=== PATIENT | male | born 1975 | race Caucasian/White ===

== ENCOUNTER → 2017-10-10 | Outpatient (CLI) | payer BC ==
[~2017-10-10] MED LIST: ALBU90I INH; ALBU90OI INH; AZIT250 PO; BUPRENORPHINE HC2 MG PO; BUTASPCAF PO; CALCA500CH PO; CYCL10 PO; ERYT.5TO OS; GUAI600T33 PO; HYDACE5 PO; IBUP200; IBUP800 PO; LORA2 PO; META800 PO; METH40; NAPR500 PO; OMEP20ER PO; OMEP40CA12 PO; PENVK500 PO; POLY17UD PO; RANI150 PO; RXHYDACE PO; RXTRAM50 PO; SERT50 PO; SUBOXONE PO; TRAM50 PO
[2017-10-12 04:09] LABS: MDA Not Detected (NOTDET); MDEA Not Detected (NOTDET); MDMA Not Detected (NOTDET)
[2017-10-12 11:59] LABS: Codeine Not Detected (NOTDET); Hydrocodone Not Detected (NOTDET); Hydromorphone Not Detected (NOTDET); Morphine Not Detected (NOTDET); Norhydrocodone Not Detected (NOTDET); Noroxycodone Not Detected (NOTDET)
== END ==
LOC: LAB SRC 14:35
PROVIDERS: Family Medicine
DX: Z51.81 Encounter for therapeutic drug level monitoring (principal); F11.20 Opioid dependence, uncomplicated; Z79.899 Other long term (current) drug therapy
CPT/HCPCS: G0480

== ENCOUNTER 2019-05-02 12:14 | Inpatient (IN) | payer BC ==
[~2019-05-02] VITALS: Ht 172.7 cm; Wt 129.9 kg
[2019-05-02 12:52] LABS: BASOPHILS ABSOLUTE AUTO 0.19 K/mm3 (0.00-0.23); BASOPHILS PERCENT AUTO 2 % (0-2); EOSINOPHILS ABSOLUTE AUTO 0.01 K/mm3 (0.00-0.68); EOSINOPHILS PERCENT AUTO 0 % (0-6); Hematocrit 39.3 % (37.0-53.0); Hemoglobin 13.4 g/dL (13.5-17.5); IMMATURE GRAN ABSOLUTE AUTO 0.13 K/mm3 (0.00-0.10); IMMATURE GRAN PERCENT AUTO 1 % (0-1); LYMPHOCYTES ABSOLUTE AUTO 1.19 K/mm3 (0.84-5.20); LYMPHOCYTES PERCENT AUTO 13 % (21-46); MONOCYTES ABSOLUTE AUTO 1.03 K/mm3 (0.16-1.47); MONOCYTES PERCENT AUTO 11 % (4-13); Mean Corpuscular HGB 33.8 pg (26.0-34.0); Mean Corpuscular HGB Conc 34.1 g/dL (31.5-36.5); Mean Corpuscular Volume 99 fL (80-100); Mean Platelet Volume 10.7 fL (9.1-12.4); NEUTROPHILS PERCENT AUTO 73 % (41-73); Platelet Count 155 K/mm3 (150-400); RDW Coefficient Variation 15.3 % (11.7-14.2); RDW Standard Deviation 55.7 fL (35.1-46.3); Red Blood Cell Count 3.96 M/mm3 (4.30-5.90); White Blood Cell Count 9.45 K/mm3 (4.00-11.30)
[2019-05-02 13:28] LABS: Alanine Aminotransfer (ALT/SGP 105 U/L (12-78); Albumin, Blood 2.7 g/dL (3.4-5.0); Albumin/Globulin Ratio 0.5 (0.8-1.8); Alk Phos 239 U/L (50-136); Anion Gap 17 mmol/L (6-16); Aspartate Aminotrans (AST/SGOT 250 U/L (12-37); Bilirubin, Total 2.4 mg/dL (0.1-1.0); Blood Urea Nitrogen 6 mg/dL (8-24); CO2, Blood 22 mmol/L (21-32); Calcium, Blood 8.7 mg/dL (8.5-10.1); Chloride, Blood 93 mmol/L (98-108); Creatinine, Blood 0.55 mg/dL (0.60-1.20); Ethanol (Alcohol), Blood, Med 314 mg/dL; Globulin, Blood 5.9 g/dL (2.2-4.0); Glomerular Filtration Rate >60 (60-); Glucose, Blood 627 mg/dL (70-99); Potassium, Blood 3.5 mmol/L (3.5-5.5); Sodium, Blood 132 mmol/L (136-145); Total Protein, Blood 8.6 g/dL (6.4-8.2)
[2019-05-02] MEDS ORDERED: POTA8 (13:51)
[2019-05-02] MEDS ORDERED: LOSARTAN-HCTZ1 EACH (13:51)
[2019-05-02] MEDS ORDERED: METF500 PO (13:51)
[2019-05-02 13:58] LABS: Base Excess Venous -2.5 mmol/L; Bicarbonate Venous 22.4 mmol/L (24.0-30.0); PCO2 Venous 40.7 mmHg (38-42); PO2 Venous 98.6 mmHg (38-42); pH Blood Venous 7.36 (7.34-7.37)
[2019-05-02 15:03] LABS: International Normalized Ratio 1.17; Prothrombin Time Results 12.2 Sec (9.7-11.5)
[2019-05-02] MEDS ORDERED: LOSARTAN-HCTZ1 EAC1 PO (19:18)
[2019-05-02] MEDS ORDERED: SUBLOCADE100 MG/0.5 SC (19:22)
[2019-05-02] MEDS ORDERED: PANT20 PO (19:22)
[2019-05-02 19:24] LABS: U Amphetamine Screen Not Detected; U Barbituate Screen Not Detected; U Benzodiazapine Screen Not Detected; U Buprenorphine Screen DETECTED; U Cannabinoids Screen Not Detected; U Cocaine Screen Not Detected; U Methadone Screen Not Detected; U Methamphetamine Screen Not Detected; U Opiates Screen Not Detected; U Oxycodone Screen Not Detected; U Phencyclidine Screen Not Detected; U Propoxyphene Screen Not Detected
--- NOTE | 2019-05-03 01:35 | NUR ---
PATIENT UP TO THE BATHROOM HEART RATE UP TO 130 WITH ACTIVITY, ST. PATIENT CIWA 11, GIVEN PRN. PATIENT MOVING AROUND INDEPENDENT IN ROOM.
--- NOTE | 2019-05-03 02:55 | NUR ---
PATIENT VOMITING INTO THE TRASH CAN, GIVEN ZOFRAN.
[2019-05-03 04:44] LABS: BASOPHILS PERCENT AUTO 1 % (0-2); EOSINOPHILS ABSOLUTE AUTO 0.04 K/mm3 (0.00-0.68); EOSINOPHILS PERCENT AUTO 1 % (0-6); Hematocrit 34.3 % (37.0-53.0); Hemoglobin 12.1 g/dL (13.5-17.5); IMMATURE GRAN ABSOLUTE AUTO 0.07 K/mm3 (0.00-0.10); IMMATURE GRAN PERCENT AUTO 1 % (0-1); LYMPHOCYTES ABSOLUTE AUTO 1.21 K/mm3 (0.84-5.20); LYMPHOCYTES PERCENT AUTO 15 % (21-46); MONOCYTES ABSOLUTE AUTO 0.78 K/mm3 (0.16-1.47); MONOCYTES PERCENT AUTO 10 % (4-13); Mean Corpuscular HGB 34.3 pg (26.0-34.0); Mean Corpuscular HGB Conc 35.3 g/dL (31.5-36.5); Mean Corpuscular Volume 97 fL (80-100); Mean Platelet Volume 10.2 fL (9.1-12.4); NEUTROPHILS ABSOLUTE AUTO 5.77 K/mm3 (1.96-9.15); NEUTROPHILS PERCENT AUTO 72 % (41-73); Platelet Count 110 K/mm3 (150-400); RDW Coefficient Variation 15.2 % (11.7-14.2); RDW Standard Deviation 53.9 fL (35.1-46.3); Red Blood Cell Count 3.53 M/mm3 (4.30-5.90); White Blood Cell Count 7.97 K/mm3 (4.00-11.30)
[2019-05-03 05:00] LABS: Anion Gap 10 mmol/L (6-16); Blood Urea Nitrogen 5 mg/dL (8-24); Bun/Creatinine Ratio 10.1 (12.0-20.0); CO2, Blood 28 mmol/L (21-32); Calcium, Blood 8.6 mg/dL (8.5-10.1); Chloride, Blood 96 mmol/L (98-108); Glomerular Filtration Rate >60 (60-); Glucose, Blood 197 mg/dL (70-99); Potassium, Blood 3.5 mmol/L (3.5-5.5); Sodium, Blood 134 mmol/L (136-145)
--- NOTE | 2019-05-03 05:44 | NUR ---
PATIENT IS DRINKING LARGE AMOUNTS OF WATER AND THEN VOMITING. PATIENT INSTRUCTED TO TAKE SMALL SLOW SIPS OF WATER WHEN DRINKING. PATIENT STATES THAT HE HAS GONE THROUGH WITHDRAWS BEFORE AND HE DOES NOT GET SEIZURES. STATES LAST TIME IT LASTED 4 DAYS AT HOME. PATIENT STATES A DESIRE TO STOP DRINKING. PATIENT GIVEN PRNS FOR CIWA SEVERAL TIMES THROUGH THE NIGHT. PATIENT NOT SLEEPING WELL.
--- NOTE | 2019-05-03 12:57 | NUR ---
[facility] CALLED TO CHECK, PER DOCTOR REQUEST, BUPRENORPHINE DOSE. 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 LAST FILL ON MEDCIATIONS WAS May. THE DOSE WAS 18MG DAILY. PT LAST FILL ON HIS HYZAR WAS JANUARY 2019. CONTINUE POT.
--- NOTE | 2019-05-03 14:22 | NUR ---
TRANSFDER TO ICU 6 PT REPORT GIVEN TO AILEEN ZAVALA. PT ALERT AND COOPERATIVE. AWARE OF TRANSFER TO ICU AND WHY. TALKED WITH PT PRIOR TO TRANSFER, CHAITANYA. PT MOVED IN BED WITH CELL PHONE, CHARGING CORD AND BLACK SHOES. ALL MEDICATIONS MOVED WITH PT. CONTINUE POT.
--- NOTE | 2019-05-03 14:38 | NUR ---
PT TRANSFERRED TO ICU FROM PCU. CIWA ON ARRIVAL 16, 4MG IV ATIVAN GIVEN. PROVIDER NOTIFIED, PRECEDEX NEEDED.
--- NOTE | 2019-05-03 14:51 | NUR ---
PT TRANSFER FROM PCU. ORIENTED TO PLACE, BUT UNABLE TO STATE NAME. EASY TO AROUSE. CIWA 16, MEDICATED PER ORDERS. SINUS TACH, BILAT RADIAL/PEDAL PULSES PALAPABLE. BREATH SOUNDS CLEAR AND DIM, PLACED ON 2 L VIA NC DUE TO DROP IN O2 SAT TO 88% WHILE SLEEPING. BOWEL SOUNDS HYPOACTIVE, ABDOMEN DISTENDED AND FIRM. SKIN WARM , DRY, INTACT, WITH PEDAL EDEMA.
--- NOTE | 2019-05-03 17:57 | NUR ---
SHIFT SUMMARY ATIVAN GIVEN ONCE SINCE TRANSFER FOR CIWA 16. PT RESTING COMFORTABLY MAJORITY OF SHIFT. FAMILY AT BEDSIDE. PT UP FOR DINNER.
--- NOTE | 2019-05-03 21:00 | NUR ---
CARE ASSUMPTION PT ALERT, ORIENTED TO SELF, PLACE, AND FAMILY AT BEDSIDE. PT DISORIENTED TO TIME, STATING THE DAY TO BE SUNDAY, AND DENIES KNOWING WHAT MONTH IT IS. PT DENIES NAUSEA AT THIS TIME. PT TREMULOUS AND SWEATING. CIWA 13. COOL WASH CLOTH PROVIDED AND ATIVAN GIVEN PER CIWA/EMAR. NS GTT INFUSING PER ORDERS. PT IN BED W/ CALL LIGHT IN REACH. BED ALARM ON. WILL CONTINUE TO MONITOR AND PROVIDE CARE.
[2019-05-04 04:00] LABS: Albumin, Blood 2.6 g/dL (3.4-5.0); Anion Gap 7 mmol/L (6-16); Blood Urea Nitrogen 9 mg/dL (8-24); Bun/Creatinine Ratio 10.5 (12.0-20.0); CO2, Blood 28 mmol/L (21-32); Chloride, Blood 102 mmol/L (98-108); Creatinine, Blood 0.86 mg/dL (0.60-1.20); Glomerular Filtration Rate >60 (60-); Glucose, Blood 192 mg/dL (70-99); Potassium, Blood 3.6 mmol/L (3.5-5.5); Sodium, Blood 137 mmol/L (136-145)
[2019-05-04 04:14] LABS: Phosphorus, Blood 0.9 mg/dL (2.5-4.9)
--- NOTE | 2019-05-04 05:00 | NUR ---
EPISODE OF URINE AND STOOL INCONTINENCE W/ PT UNAWARE OF INCONTINENCE. PT PASSING OF MEDIUM SIZED, LOOSE, GREEN STOOL. AFTER EPISODE OF INCONTINENCE, PT REPOSITIONED SELF AT EDGE OF BED AND WAS ASSISTED BY 2 STAFF TO CHAIR FOR SPONGE BATH AND BED CHANGE. PT ABLE TO GRASP WASH CLOTHS ONLY MOMENTARILY BEFORE DROPPING THEM TO THE FLOOR. PT THEN GIVEN SPONGE BATH BY STAFF AND PLACED IN ATTENDS. PT WEAK AND UNSTEADY W/ RETURN FROM CHAIR TO BED REQUIRING 2 PERSON MOD/HEAVY ASSIST. PT NOW BACK IN BED W/ BED ALARM ON. WILL CONTINUE TO MONITOR AND PROVIDE CARE.
--- NOTE | 2019-05-04 05:11 | NUR ---
CALL TO MD MAGAÑA @ APPROX 0500 TO REPORT CRITICALLY LOW PHOS. MD MAGAÑA STATES HE WILL PLACE ORDERS AFTER REVIEWING PT.
--- NOTE | 2019-05-04 05:34 | NUR ---
SHIFT SUMMARY PT CONTINUES TO BE ALERT TO SELF AND PLACE. FAMILY NO LONGER IN ROOM. LUNG SOUNDS COARSE. PT DESAT TO 88% ON RA. SPO2 > 92% ON 2L NC. MONITOR SHOWS ST, HR 110-130. EPISODE OF BOWEL AND BLADDER INCONTINENCE THIS AM W/ PT NOW WEARING ATTENDS. PT VERY WEAK AND UNSTEADY ON FEET, REQUIRING 2 PERSON MOD/HEAVY ASSIST. PT SLEEPING HEAVILY T/O MAJORITY OF SHIFT. PT WAKES TO VERBAL STIMULI OR SOFT TOUCH. CALL TO MD MAGAÑA THIS AM TO REPORT PHOS LEVEL. MD MAGAÑA W/ ORDERS FOR REPLACEMENT, SEE EMAR. PT IN BED SLEEPING W/ CALL LIGHT IN REACH AND BED ALARM ON. WILL CONTINUE TO MONITOR AND PROVIDE CARE UNTIL REPORT OFF TO DAY SHIFT RN.
--- NOTE | 2019-05-04 14:24 | NUR ---
REASSESSMENT: PT REMAINS DROWSY, ORIENTED TO PERSON, BUT UNSURE OF PLACE OR YEAR. ABLE TO URINATE ON OWN BUT INCONTINENT OF BOWELS. RECTAL TUBE PLACED. PT UP AT BEDSIDE TO USE URINAL X 2. OUTPUT OF 400ML OF TEA COLORED URINE. PT REMAINS SINUS TACH WITH HR IN THE 110S. LUNG SOUNDS CLEAR, BUT DIMINISHED. 90% O2 SAT ON 2L NC. IV NS RUNNING AT 75ML/HR.
--- NOTE | 2019-05-04 16:19 | NUR ---
PT RESTING MAJORITY OF DAY. ORIENTED TO PERSON. DROWSY, BUT ABLE TO FOLLOW COMMANDS. ABLE TO STAND AT BEDSIDE WITH TWO PERSON ASSIST AND USE URINAL. LAST OUTPUT 325 MLS. INCONTINENT OF BOWELS, RECTAL TUBE IN PLACE WITH SMALL OUTPUT OF BROWN LOOSE STOOL. SINUS TACH, RADIAL/PEDAL PULSES PALPABLE. LUNG SOUNDS CLEAR BUT DIMINISHED AT BASES. DESATS ON RA TO 88-89% . CURRENTLY ON 2L NC-O2 SAT AT 91%. 20G IN R UPPER ARM-INFUSING WITH NS, 75ML/HR. BLOOD SUGARS HAVE BEEN 212-216. RECEIVED 7 U REGULAR INSULIN AT NOON. FAMILY WITH PT INTERMITTENTLY THROUGHOUT DAY AND HAVE BEEN FULLY UPDATED BY NURSING STAFF
--- NOTE | 2019-05-04 20:15 | NUR ---
PATIENT AWAKE AND PULLING AT LINES AND CORDS, AND RESTLESS. PATIENT ASSISTED UP TO BSC PATIENT PASSING LARGE LIQUID BROWN STOOL, RECTAL TUBE FALLING OUT. RECTAL TUBE LEFT OUT AND ATTENDS PLACED. PATIENT HAD POOR BALANCE WHEN UP, ASSISTING WITH CARE WHEN ABLE. NEEDING FREQUENT VERBAL DIRECTIONS. LUNG SOUNDS COARSE WITH MOIST COUGH, LUNGS CLEARING AFTER STRONG COUGH AND GETTING UP TO BSC. ON 2L/NC. PATIENT AWARE OF BEING IN [place] BUT UNSURE OF WHERE HE IS AND WHY HE IS IN THE HOSPITAL, UNSURE OF DATE. PLAN TO MONITOR CIWA TONIGHT.
--- NOTE | 2019-05-05 02:06 | NUR ---
PATIENT AWAKE AND PULLING AT LINES AND CORDS ATTEMPTING TO GET OUT OF BED TO THE BATHROOM. IV TO RIGHT HAND ACCIDENTALLY REMOVED. PATIENT UP TO BSC AND LINEN CHANGED.
[2019-05-05 03:36] LABS: Albumin, Blood 2.3 g/dL (3.4-5.0); Anion Gap 7 mmol/L (6-16); Blood Urea Nitrogen 9 mg/dL (8-24); CO2, Blood 28 mmol/L (21-32); Calcium, Blood 8.7 mg/dL (8.5-10.1); Chloride, Blood 106 mmol/L (98-108); Glomerular Filtration Rate >60 (60-); Glucose, Blood 145 mg/dL (70-99); Phosphorus, Blood 1.7 mg/dL (2.5-4.9); Potassium, Blood 2.8 mmol/L (3.5-5.5); Sodium, Blood 141 mmol/L (136-145)
--- NOTE | 2019-05-05 03:56 | NUR ---
DOCTOR MAGAÑA CALLED REGARDING LOW POTASSIUM AND PHOS. SEE NEW ORDERS
--- NOTE | 2019-05-05 05:00 | NUR ---
PATIENT RESTLESS AND PULLING AT LINES AND CORDS, VERBALIZED NEEDING TO GET UP TO URINATE. PATIENT ASSISTED WITH STANDING A SIDE OF BED, PATIENT UNABLE TO URINATE. POOR BALANCE WHILE STANDING. PATIENT CONTINUES TO KEEP EYES CLOSED UNLESS ASKED TO OPEN THEM. BLADDER SCAN DONE SHOWING 674 CC OF URINE IN BLADDER. WILL ATTEMPT TO HELP PATIENT VOID AGAIN LATER.
--- NOTE | 2019-05-05 06:47 | NUR ---
SUMMARY PATIENT RESTLESS OFF AND ON T/O THE NIGHT. LIBRIUM GIVEN TWICE DURING THE NIGHT. PATIENT CONFUSION CONTINUES, BUT PATIENT APPEARS TO ANSWER FASTER THIS AM . PATIENT ABLE TO STAND AND VOID 450 CC OF DARK ORANGE URINE EARLY THIS MORNING. PATIENT CONTINUES TO HAVE POOR BALANCE, USING WALKER AND 1 PERSON ASSIST.
--- NOTE | 2019-05-05 15:53 | NUR ---
PT CONTINUES TO REMOVE OXYGEN. O2 SAT ON RA IS 93%; OXYGEN REMOVED. PT SLEEPING COMFORTABLY.
--- NOTE | 2019-05-05 18:19 | NUR ---
SHIFT SUMMARY: PATIENT SOMNOLENT ENTIRE SHIFT, AROUSES TO SPEECH, OFTEN DISORIENTED, PULLING AT LINES. CIWA SCORE <8 DURING THE DAY, MEDICATED WITH LIBRIUM X 1. DENIES PAINM, NAUSEA. SINUS RHYTHM/SINUS TACH 90-LOW 100'S. LUNGS DIM THROUGHOUT, ON RA, SANITATION TRUCK DRIVER COUGH. SKIN SLIGHTLY JAUNDICED. URINE DARK ORANGE. LBM TODAY, LIQUID BROWN. NEW IV IN L FA 20 G, PLACED TODAY AFTER PREVIOUS ONE CAME OUT, NS @ 75 ML/HR. UP IN CHAIR X 2 TODAY, VERY UNSTEADY WITH TRANSFERS REQUIRING 2 PERSONS, FWW, AND MULTIPLE VERBAL CUES. POOR PO INTAKE TODAY. AND MOM VISITED.
--- NOTE | 2019-05-05 19:47 | NUR ---
PATIENT UP IN CHAIR WATCHING TV. ORIENTATED TO PERSON AND PLACE, REMAINS UNSURE OF DATE, THINKING IT WAS JUNE. PATIENT C/O FEELING HUNGARY, SNACK OF PUDDING AND 1/2 SANDWICH GIVEN. PATIENT FEEDING SELF, CONTINUES TO HAVE A LITTLE COORDINATION DIFFICULTY AT TIMES, DROPPING BOTTLE OF WATER. PATIENT CONTINUES TO KEEP EYES CLOSED ONLY OPENING FOR SHORT TIME WHILE TALKING WITH STAFF.
[2019-05-06 03:42] LABS: Albumin, Blood 2.2 g/dL (3.4-5.0); Anion Gap 7 mmol/L (6-16); Blood Urea Nitrogen 10 mg/dL (8-24); Bun/Creatinine Ratio 14.8 (12.0-20.0); CO2, Blood 28 mmol/L (21-32); Calcium, Blood 8.4 mg/dL (8.5-10.1); Chloride, Blood 106 mmol/L (98-108); Creatinine, Blood 0.68 mg/dL (0.60-1.20); Glomerular Filtration Rate >60 (60-); Glucose, Blood 138 mg/dL (70-99); Phosphorus, Blood 2.9 mg/dL (2.5-4.9); Potassium, Blood 2.8 mmol/L (3.5-5.5); Sodium, Blood 141 mmol/L (136-145)
--- NOTE | 2019-05-06 06:04 | NUR ---
SUMMARY PATIENT SLEEPING OFF AND ON T/O NIGHT. PATIENT SPONTANEOUS AND IMPULSIVE WHEN NEEDING TO GET UP TO TOILET. PATIENT CONTINUES TO BE UNSTEADY WHEN STANDING. BED ALARM ON WHEN IN BED AND TAB ALARM ON WHEN UP IN CHAIR. PATIENT MEDICATED WITH LIBRIUM X1 DURING THE NIGHT. CONFUSION CONTINUES. ORIENTATED TO PERSON AND PLACE WHEN ASKED THE DATE PATIENT STATES "I DON'T CARE" THEN CONTINUES TO THINK IT IS JUNE. CONTINUES TO PASS LIQUID BROWN/GREEN STOOL DUE TO LACTULOSE. PULL UP ATTENDS IN PLACE DUE TO OCCASIONAL INCONTINENCE OF STOOL.
--- NOTE | 2019-05-06 08:40 | NUR ---
ASSESSMENT- PT AWAKE, ALERT, PREFERS TO KEEP EYES CLOSED. VSS. NORMOTENSIVE, HR 90-100'S. STATES DOES FEEL ANXIOUS, UNABLE TO ANSWER DATE. DOES FOLLOW DIRECTIONS. FEEDING SELF, ONLY HAVING SMALL AMOUNT BREAKFAST. ABLE TO TAKE PO MEDS. LUNGS CLEAR. PIV RIGHT ARM INFUSING NS 75 CC/HR. SCDS ON. FALL PRECAUTIONS
--- NOTE | 2019-05-06 11:00 | NUR ---
VSS, SLEEPING WHEN UNDISTURBED. CONTINUE TO MONITOR.
--- NOTE | 2019-05-06 13:30 | NUR ---
ASSISTED UP OUT OF BED TO COMMODE. IRRITABLE WITH ASSISTANCE. EXPLAINED PLAN OF CARE, AGREEABLE. FALL PRECAUTIONS-BED ALARM ON, ONLY UP WITH ASSIST. VSS. CIWA 8-LIBRIUM GIVEN PER C/O NERVOUSNESS, ANXIETY. PT'S HERE. DR. SNOWDEN HERE-ASSESSED PT.
--- NOTE | 2019-05-06 15:50 | NUR ---
PT RESTING WITHOUT COMPLAINTS. VSS. CONTINUE TO MONITOR
--- NOTE | 2019-05-06 18:33 | NUR ---
PT AWAKE, STATES FEELING VERY ANXIOUS, WANTS TO GO HOME. PT CALLED HIS . HEARTRATE 110'S. WILL GIVE RX FOR ANXIETY. EATING BETTER
--- NOTE | 2019-05-06 19:15 | NUR ---
PT TRIED TO GET OOB BY SELF. BED ALARM. ABLE TO FOLLOW DIRECTIONS, STATES "EMBARRASING TO CALL" EXPLAINED PLAN OF CARE, STATES WILL CALL. ASSISTED TO COMMODE, LIQUID STOOL. NOW CALM AND RESTING
--- NOTE | 2019-05-06 21:11 | NUR ---
PATIENT AWAKE C/O FEELING ANXIOUS. LIBRIUM PO GIVEN. PATIENT VERBALIZED UNDERSTANDING THAT HE NEEDS TO CALL FOR ASSISTANCE WHEN GETTING UP DUE TO POOR BALANCE. PATIENT CONTINUES TO BE IMPULSIVE AND FORGETFUL AT TIMES. PATIENT ABLE TO REMEMBER HE IS IN THE HOSPITAL, BUT THINKING HE IS IN [place]. REMAINS UNSURE OF MONTH OR DAY. BED ALARM ON AND CALL LIGHT IN REACH.
[2019-05-07 03:08] LABS: BASOPHILS ABSOLUTE AUTO 0.11 K/mm3 (0.00-0.23); BASOPHILS PERCENT AUTO 2 % (0-2); EOSINOPHILS ABSOLUTE AUTO 0.34 K/mm3 (0.00-0.68); EOSINOPHILS PERCENT AUTO 6 % (0-6); Hematocrit 34.7 % (37.0-53.0); Hemoglobin 11.7 g/dL (13.5-17.5); IMMATURE GRAN PERCENT AUTO 2 % (0-1); LYMPHOCYTES ABSOLUTE AUTO 1.26 K/mm3 (0.84-5.20); LYMPHOCYTES PERCENT AUTO 21 % (21-46); MONOCYTES ABSOLUTE AUTO 0.96 K/mm3 (0.16-1.47); MONOCYTES PERCENT AUTO 16 % (4-13); Mean Corpuscular HGB 33.9 pg (26.0-34.0); Mean Corpuscular HGB Conc 33.7 g/dL (31.5-36.5); NEUTROPHILS ABSOLUTE AUTO 3.25 K/mm3 (1.96-9.15); NEUTROPHILS PERCENT AUTO 54 % (41-73); Platelet Count 114 K/mm3 (150-400); RDW Coefficient Variation 17.9 % (11.7-14.2); RDW Standard Deviation 61.8 fL (35.1-46.3); Red Blood Cell Count 3.45 M/mm3 (4.30-5.90); White Blood Cell Count 6.02 K/mm3 (4.00-11.30)
[2019-05-07 03:11] LABS: Mean Corpuscular Volume 101 fL (80-100)
[2019-05-07 03:23] LABS: Anion Gap 5 mmol/L (6-16); Blood Urea Nitrogen 8 mg/dL (8-24); Bun/Creatinine Ratio 12.7 (12.0-20.0); CO2, Blood 29 mmol/L (21-32); Calcium, Blood 8.2 mg/dL (8.5-10.1); Chloride, Blood 108 mmol/L (98-108); Creatinine, Blood 0.63 mg/dL (0.60-1.20); Glomerular Filtration Rate >60 (60-); Glucose, Blood 128 mg/dL (70-99); Phosphorus, Blood 2.8 mg/dL (2.5-4.9); Potassium, Blood 2.9 mmol/L (3.5-5.5); Sodium, Blood 142 mmol/L (136-145)
--- NOTE | 2019-05-07 05:23 | NUR ---
PATIENT UP TO BSC PASSING LIQUID BROWN STOOL. PATIENTS BALANCE APPEARS BETTER THIS AM AND PATIENT ABLE TO CLEAN SELF AFTER BM. PATIENT UP TO CHAIR AFTER BSC.
--- NOTE | 2019-05-07 06:57 | NUR ---
SUMMARY PATIENT SLEEPING OFF AND ON T/O THE NIGHT. WHEN AWAKE PATIENT IMPULSIVE AND SPONTANEOUS. PATIENT APPEARS TO HAVE BETTER BALANCE THIS MORNING, WHEN UP TO BSC. PATIENT MEDICATED WITH LIBRIUM TWICE DURING THE NIGHT DUE TO PATIENT FEELING ANXIOUS.
--- NOTE | 2019-05-07 08:30 | NUR ---
ASSESSMENT- PT AWAKENED FOR ASSESSMENT, ALERT, COOPERATIVE. STATES FEELS BETTER. DENIES ANXIETY, SOMEWHAT RESTLESS WHEN AWAKE. SINUS RHYTHM, LUNGS CLEAR. IV NS AT 75 CC/HR, SITE INTACT. CALLED DR. SNOWDEN REGARDING K LEVEL-REPLACEMENT ORDERED. SKIN WARM, DRY. DOES FALL ASLEEP EASILY.
--- NOTE | 2019-05-07 09:59 | NUR ---
PT SATES STILL FEELING BETTER. ASSISTED TO COMMODE, MOVING BETTER, STILL UNSTEADY ON FEET. AM CARES DONE
--- NOTE | 2019-05-07 11:25 | NUR ---
INCREASING ANXIETY, STATES WANTS TO GO HOME. EXPLAINED LABS, PLAN OF CARE.AGREEABLE FOR NOW. EATING. BLOOD SUGAR ELEVATED-COVERED
--- NOTE | 2019-05-07 15:11 | NUR ---
MEDICAL STATUS. ATE 405 LUNCH. STATES FEELS SLIGHTLY NERVOUS BUT DENIES NEED FOR MEDICATION. SLEEPING WHEN UNDISTURBED
--- NOTE | 2019-05-07 18:15 | NUR ---
PT ASSISTED UP TO COMMODE. ABLE TO CALL FOR ASSIST. ATE 30% DINNER. VISITING WITH FRIEND. COOPERATIVE. DENIES NEED FOR MEDICATION
--- NOTE | 2019-05-07 20:30 | NUR ---
PT RESTING IN BED. A/O TO PERSON AND PLACE. TAKES A LITTLE BIT FOR HIM TO COME UP WITH THE YEAR, MONTH, AND WHO THE PRESIDENT. A LITTLE IMPULSIVE STILL WITH GETTING OOB AT TIMES. HE WILL TRY TO EXIT BED BEFORE CALLING STAFF. UNSTEADY ON FEET. NO SIGN OF DISTRESS. CALL LIGHT IN REACH.
[2019-05-08 03:52] LABS: Albumin, Blood 2.1 g/dL (3.4-5.0); Anion Gap 6 mmol/L (6-16); Blood Urea Nitrogen 8 mg/dL (8-24); Bun/Creatinine Ratio 13.2 (12.0-20.0); CO2, Blood 26 mmol/L (21-32); Calcium, Blood 8.3 mg/dL (8.5-10.1); Chloride, Blood 108 mmol/L (98-108); Creatinine, Blood 0.61 mg/dL (0.60-1.20); Glomerular Filtration Rate >60 (60-); Glucose, Blood 129 mg/dL (70-99); Phosphorus, Blood 2.6 mg/dL (2.5-4.9); Potassium, Blood 3.1 mmol/L (3.5-5.5); Sodium, Blood 140 mmol/L (136-145)
--- NOTE | 2019-05-08 06:03 | NUR ---
SUMMARY PT DID WELL THROUGH THE NIGHT. WAS ABLE TO USE THE CALL LIGHT APPROPRIATELY THIS AM AND WAITED FOR STAFF TO BE AT BEDSIDE BEFORE TRYING TO GET OOB. STILL UNSTEADY ON FEET BUT 1 PERSON ASSIST. HAD SEVERAL BM'S. NO SIGN OF DISTRESS OR AGITATION THIS AM. BED ALARM ARMED FOR SAFETY.
--- NOTE | 2019-05-08 07:20 | NUR ---
START OF SHIFT NOTE: RECEIVED REPORT FROM SALLY DOTSON, ASSUMED CARE, PATIENT IS AWAKE, ALERT AND ORIENTED, SLOW TO RESPOND, LUNG SOUNDS ARE CLEAR, NSR, BOWEL TONES PRESENT AND HYPERACTIVE, PATIENT IS ON Q4 LACTULOSE D/T ELEVATED AMMONIA LEVELS, PATIENT IS OBSERVED TO HAVE PROBLEMS WITH FINE MOTOR SKILLS, TAKES MEDICATION WELL WITHOUT ANY PROBLEMS SWALLOWING, CALL LIGHT IN REACH, WILL CONTINUE TO MONITOR.
--- NOTE | 2019-05-08 08:47 | NUR ---
SIDE RAIL LOWERED ON BED, PATIENT STATED "I FEEL TRAPPED".
--- NOTE | 2019-05-08 10:07 | NUR ---
PATIENT UP TO BSC, NEEDS COACHING, STATED "I AM NOT GOING TO FALL", HAS EYES CLOSED MOST OF THE TIME, LIQUID BM'S D/T LACTULOSE, URINE TEA COLORED, PATIENT RETURNED TO BED, COOPERATIVE AND FOLLOWS MOST COMMANDS, CALL LIGHT IN REACH, WILL CONTINUE TO MONITOR.
--- NOTE | 2019-05-08 11:12 | NUR ---
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
--- NOTE | 2019-05-08 12:30 | NUR ---
DR. MEZA IN TO SEE PATIENT, NEW ORDERS RECEIVED, ALSO SIGNED SICK SLIP FOR PATIENT, ASKED ABOUT ZABOXON SHOT DR. MEZA WAS NOT CONCERNED THAT PATIENT IS MISSING IT.
--- NOTE | 2019-05-08 12:32 | NUR ---
AT BEDSIDE, CONCERNED THAT HE MISSED HIS SCHEDULED MONTHLY ZABOXON SHOT, ALSO CONCERNED THAT HE APPEARS TO STILL BE CONFUSED AT TIMES, WHICH IS A CORRECT OBSERVATION, PATIENT IS COOPERATIVE BUT BECOMES CONFUSED, ALSO HAD 2 BRIEF NOSE BLEEDS, AND STATED "I HAVE THOSE ALL THE TIME AND EVERYBODY KNOWS ABOUT IT", DENIES THAT, CALL LIGHT IN REACH, WILL CONTINUE TO MONITOR.
--- NOTE | 2019-05-08 13:46 | NUR ---
PT/OT IN TO WORK WITH PATIENT ORDERED.
--- NOTE | 2019-05-08 14:25 | NUR ---
PATIENT RECEIVED 2 MG ATIVAN PER CIWA SCORE, PT BECAME MORE ANXIOUS AND AGITATED AFTER WORKING WITH PT/OT, CONTINUES TO BE COOPERATIVE, AND FOR MOST OF THE TIME USES CALL LIGHT, WHICH IS IN REACH, WILL CONTINUE TO MONITOR.
--- NOTE | 2019-05-08 17:55 | NUR ---
SHIFT SUMMARY NOTE: NO ACUTE EVENTS, PATIENT IS MEDICAL STATUS, AMMONIA LEVEL CONTINUES TO BE ELEVATED, ON Q4 HR LACTULOSE DOSES, PATIENT IS NOT ORIENTED TO OWN ABILITIES, VERY IMPULSIVE AT TIMES, UNABLE TO FOLLOW ORDERS AND USE OF CALL LIGHT, NEEDS CONTINUOUS REINFORCEMENT, VERY UNSTEADY GAIT, OT/PT IN TO ASSESS/EVALUATE PATIENT, ALSO RESULTED IN PATIENT BEING VERY UNSTEADY, NOT ABLE TO PERFORM FINE MOTOR SKILLS, UP TO BSC WITH 1-2 ASSIST, LIQUID STOOLS D/T LACTULOSE, USES URINAL APPROPRIATELY, NEEDS TO BE REMINDED TO KEEP EYES OPEN, BLOOD GLUCOSE LEVELS VARY FROM 180'S TO 190'S, TAKES ORAL MEDICATION WELL WITHOUT ANY PROBLEMS SWALLOWING, HAS GOOD APPETITE AND EATS WELL, FOR DETAILS SEE SHIFT ASSESSMENT DOCUMENTATION AND NURSES NOTES, CALL LIGHT IN REACH, WILL CONTINUE TO MONITOR AND GIVE REPORT TO ONCOMING FIELD PROJECT MANAGER.
[2019-05-09 03:57] LABS: Alanine Aminotransfer (ALT/SGP 62 U/L (12-78); Albumin, Blood 2.1 g/dL (3.4-5.0); Albumin/Globulin Ratio 0.4 (0.8-1.8); Alk Phos 151 U/L (50-136); Anion Gap 5 mmol/L (6-16); Aspartate Aminotrans (AST/SGOT 134 U/L (12-37); Bilirubin, Total 4.7 mg/dL (0.1-1.0); Blood Urea Nitrogen 6 mg/dL (8-24); Bun/Creatinine Ratio 9.7 (12.0-20.0); CO2, Blood 29 mmol/L (21-32); Calcium, Blood 8.5 mg/dL (8.5-10.1); Chloride, Blood 108 mmol/L (98-108); Creatinine, Blood 0.62 mg/dL (0.60-1.20); Globulin, Blood 5.1 g/dL (2.2-4.0); Glomerular Filtration Rate >60 (60-); Glucose, Blood 160 mg/dL (70-99); Potassium, Blood 3.1 mmol/L (3.5-5.5); Sodium, Blood 142 mmol/L (136-145); Total Protein, Blood 7.2 g/dL (6.4-8.2)
--- NOTE | 2019-05-09 06:19 | NUR ---
SUMMARY PT RESTING IN BED. HAS BEEN MORE ORIENTED TONIGHT. A/O TO PERSON, PLACE, AND YEAR. PT HAS BEEN USING CALL LIGHT WHEN NEEDING TO GET OOB. STILL UNSTEADY ON HIS FEET. HAD SEVERAL BM'S. NO SIGN OF DISTRESS THIS AM.
--- NOTE | 2019-05-09 07:25 | NUR ---
START OF SHIFT NOTE: RECEIVED REPORT FROM SALLY DOTSON, ASSUMED CARE, PATIENT IS AWAKE, ALERT AND ORIENTED, SLIGHTLY CONFUSED ABOUT TIME AND DATE, SOMETIMES CONFUSED TO OWN ABILITIES, BG 123, NO COVERAGE REQUIRED, LUNG SOUNDS CLEAR BUT DIMINISHED, NONPRODUCTIVE COUGH, VSS, DENIES PAIN, AFEBRILE, NSR, BOWEL TONES HYPERACTIVE, USES URINAL TO VOID, MOSTLY USES CALL LIGHT APPROPRIATELY, CAN BE IMPULSIVE AT TIMES, EATING BREAKFAST, CALL LIGHT IN REACH, WILL CONTINUE TO MONITOR.
--- NOTE | 2019-05-09 09:43 | NUR ---
PATIENT APPEARS SLIGHTLY BETTER WITH COORDINATION THIS AM, TAKING ORAL MEDICATIONS WITHOUT ANY PROBLEMS, SLOW TO RESPOND HOWEVER, NEEDS COACHING ON OPENING HIS EYES, CALL LIGHT IN REACH, WILL CONTINUE TO MONITOR.
--- NOTE | 2019-05-09 10:37 | NUR ---
Patient is sitting up in bed and alert. Patient tells me about his current medical issues and that his life consists of work and drinking. Patient has a depressed demeanor and is some what guarded. Patient did share enough to indicate that he is in a spiritual crisis. He told me about a train examiner in [place] that he was very close to who recently moved out of the country and that he was an anchor for him. Patient has lost his way and stephenie. I listen to patient and provide spiritual guidance, pastoral trauma counsellor and prayer. Patient also inquired about churches to try, I left him the info. for the holiness I attend. Patient responded well and showed signs of restored stephenie. I will continue to remain available to patient and family.
--- NOTE | 2019-05-09 10:49 | NUR ---
OT IN TO WORK WITH PATIENT.
--- NOTE | 2019-05-09 11:08 | NUR ---
REPORT WAS CALLED TO SALLY FERNANDO, PATIENT WILL BE TRANSFERRED TO ROOM 332 VIA WHEELCHAIR, WITH ALLBELONGINGS AND MEDICATIONS.
--- NOTE | 2019-05-09 11:42 | NUR ---
1130 PATIENT ARRIVED FROM ICU . HE IS W/D FROM ETOH. PATIENT IS ABLE TO AMBULATE BUT REQUIRES SBA. HE IS SLOW TO RESPOND BUT IS APPROPRIATE. BED ALARM ON PATIENT CAN BE IMPULSIVE. NO COMPLAINTS AT THIS TIME.
[2019-05-10 05:32] LABS: Alanine Aminotransfer (ALT/SGP 56 U/L (12-78); Albumin, Blood 1.9 g/dL (3.4-5.0); Albumin/Globulin Ratio 0.4 (0.8-1.8); Alk Phos 138 U/L (50-136); Anion Gap 4 mmol/L (6-16); Aspartate Aminotrans (AST/SGOT 128 U/L (12-37); Bilirubin, Total 4.5 mg/dL (0.1-1.0); Blood Urea Nitrogen 5 mg/dL (8-24); Bun/Creatinine Ratio 8.6 (12.0-20.0); CO2, Blood 30 mmol/L (21-32); Calcium, Blood 8.3 mg/dL (8.5-10.1); Chloride, Blood 106 mmol/L (98-108); Creatinine, Blood 0.58 mg/dL (0.60-1.20); Globulin, Blood 4.9 g/dL (2.2-4.0); Glomerular Filtration Rate >60 (60-); Glucose, Blood 150 mg/dL (70-99); Potassium, Blood 3.2 mmol/L (3.5-5.5); Sodium, Blood 140 mmol/L (136-145); Total Protein, Blood 6.8 g/dL (6.4-8.2)
--- NOTE | 2019-05-10 06:44 | NUR ---
SHIFT SUMMARY. PATIENT WAS PLEASANTLY CONFUSED THIS SHIFT. OOB TO BRP AND HE CONTINUES TO BE IMPULSIVE. BED ALARMED. PT DENIES PAIN. HAS DIFFICULTY FOLLOWING CONVERSATION. DENIES PAIN, HEADACHE, NAUSEA, SENSITIVITY TO LIGHT OR SOUNDS, NO DTS, NOTES, SKIN IS COOL AND DRY. NO REAL CHANGESS TO REPORT.
[2019-05-10] MEDS ORDERED: LOSA25 PO (10:53)
[2019-05-10] MEDS ORDERED: FOLI1 PO (10:53)
[2019-05-10] MEDS ORDERED: LACT10SY PO (10:54)
[2019-05-10] MEDS ORDERED: POTA10T PO (10:56)
[2019-05-10] MEDS ORDERED: VITAMIN B-1100 MG PO (10:57)
--- NOTE | 2019-05-10 11:54 | NUR ---
DISCHARGE SUMMARY NO ACUTE CONCERNS PER PATIENT. INFORMATION GIVEN TO PATIENT AND HIS FAMILY MEMBER. MEDICATIONS SENT TO THE PHARMACY. PATIENT WHEELED OUTSIDE BY [facility].
--- NOTE | 2019-05-10 13:07 | NUR ---
PATIENT WAS ADAMENT THAT HE WOULD BE LEAVING AND WANTED TO SIT DOWNSTAIRS TO AWAIT HIS FAMILY, I AM UNABLE TO PHYSICALL RESTRAIN THE PATIENT AND PLACE HIM BACK IN HIS ROOM. THE PATIENT WAS GIVEN DISCHARGE INSTRUCTIONS AND HIS IV WAS REMOVED. THE FAMILY ARRIVED TO THE FLOOR TO FANCY SEWER THE PATIENT EMOTIONAL THAT HE WAS BEING DISCHARGED AND WAS NOT SITTING WHERE THEY WERE EXPLAINED HE WOULD BE. THE PATIENT HAD GONE TO THE BATHROOM AND WAS FOUND IN THE SAME AREA ALTHOUGH INSIDE THE PATIENT ENTRANCE. I PRINTED AN EXTRA SET OF DISCHARGE INSTRUCTIONS FOR HIS WHO WAS CRYING ABOUT THE PATIENT'S DISCHARGE AND HER INABILITY TO TAKE CARE OF HIM AT HOME. SPENT TIME WITH THE PATIENT'S AND EXPLAINED WHAT WAS GOING ON BEFORE HE LEFT, SHE WAS GIVEN A URINAL, AND SENT OUT. THE NUMBER FOR THE MEDICAL FLOOR WAS ON THE PAPERWORK AND I HAVE EXPLAINED THAT SHE CAN CALL FOR ANY QUESTIONS. PATIENT FAMILY WAS UNHAPPY ABOUT HIS DISCHARGE AND WAS EXPLAINING THAT THE PATIENT THEY ARE WORRIED WILL GET WORSE.
== END 2019-05-10 11:43 | disposition home health service (06) | DRG 896 ==
LOC: ER 12:14 → PCU 12:15 → ER 12:15 → PCU 12:15 → ICUE 05-03 14:19 → MEDS 05-09 11:27 → ENPENDDIS 05-10 11:30 → MEDS 05-10 11:43
PROVIDERS: Emergency Medicine; Internal Medicine; ADMIT Family Medicine
DX: F10.239 Alcohol dependence with withdrawal, unspecified (principal); G93.41 Metabolic encephalopathy; E72.20 Disorder of urea cycle metabolism, unspecified; Z68.41 Body mass index [BMI] 40.0-44.9, adult; K72.90 Hepatic failure, unspecified without coma; E11.65 Type 2 diabetes mellitus with hyperglycemia; B19.20 Unspecified viral hepatitis C without hepatic coma; Z98.52 Vasectomy status; F41.9 Anxiety disorder, unspecified; F17.210 Nicotine dependence, cigarettes, uncomplicated; E66.01 Morbid (severe) obesity due to excess calories; K76.0 Fatty (change of) liver, not elsewhere classified; E83.39 Other disorders of phosphorus metabolism; E87.6 Hypokalemia; Y90.8 Blood alcohol level of 240 mg/100 ml or more; Z79.84 Long term (current) use of oral hypoglycemic drugs
CPT/HCPCS: 36415; 71046; 76705; 80048; 80053; 80069; 82010; 82140; 82803; 82947; 83036; 85025; 85610; 93005; 93010; 94760; 96361; 96372; 96374; 96375; 96376; 97116; 97162; 97166; 97530; 97535; 99285-25; G0378; G0480; J0360; J1650; J1815; J2060; J2405; J3480; J7030; J7060

== ENCOUNTER → 2024-08-25 | Outpatient (CLI) | payer BC ==
[~2024-08-25] MED LIST changes: +FOLI1 PO; +LACT10SY PO; +LOSA25 PO; +LOSARTAN-HCTZ1 EAC1 PO; +LOSARTAN-HCTZ1 EACH; +METF500 PO; +PANT20 PO; +POTA10T PO; +POTA8; +SUBLOCADE100 MG/0.5 SC; +VITAMIN B-1100 MG PO
[2024-08-25 19:51] LABS: Creatinine, Urine Random 29.6 mg/dL (27.00-270.00); Microalb/Creat Ratio UR, Rand 20.878 mg/g (0.000-30.000); Microalbumin, Random Urine 6.18 mg/L (0.000-20.000)
== END ==
LOC: LAB SHORT 13:45 → LAB 13:45
PROVIDERS: Physician Assistant
DX: E13.9 Other specified diabetes mellitus without complications (principal)
CPT/HCPCS: 82043; 82570

== ENCOUNTER 2025-06-20 11:51 | Emergency (ER) | payer BC ==
[~2025-06-20] VITALS: Ht 172.7 cm; Wt 111.1 kg
[2025-06-20] MEDS ORDERED: Ondansetron HCl 2 MG / ML 2ML Vial IV PRN (12:05)
[2025-06-20 12:55] LABS: BASOPHILS ABSOLUTE AUTO 0.05 K/mm3 (0.00-0.23); BASOPHILS PERCENT AUTO 1 % (0-2); EOSINOPHILS ABSOLUTE AUTO 0.00 K/mm3 (0.00-0.68); EOSINOPHILS PERCENT AUTO 0 % (0-6); Hematocrit 39.7 % (37.0-53.0); Hemoglobin 14.1 g/dL (13.5-17.5); IMMATURE GRAN ABSOLUTE AUTO 0.09 K/mm3 (0.00-0.10); IMMATURE GRAN PERCENT AUTO 1 % (0-1); LYMPHOCYTES ABSOLUTE AUTO 0.46 K/mm3 (0.84-5.20); LYMPHOCYTES PERCENT AUTO 4 % (21-46); MONOCYTES ABSOLUTE AUTO 1.01 K/mm3 (0.16-1.47); MONOCYTES PERCENT AUTO 9 % (4-13); Mean Corpuscular HGB Conc 35.5 g/dL (31.5-36.5); Mean Corpuscular Volume 79 fL (80-100); NEUTROPHILS ABSOLUTE AUTO 9.34 K/mm3 (1.96-9.15); NEUTROPHILS PERCENT AUTO 85 % (41-73); NRBC ABSOLUTE 0.00 K/mm3 (0.00-0.02); NRBC Auto 0.0 /100 WBC (0.0-0.2); Platelet Count 126 K/mm3 (150-400); RDW Coefficient Variation 13.4 % (11.7-14.2); RDW Standard Deviation 38.3 fL (35.1-46.3)
[2025-06-20 13:10] LABS: Alanine Aminotransfer (ALT/SGP 66.0 U/L (12-78); Albumin, Blood 2.7 g/dL (3.4-5.0); Albumin/Globulin Ratio 0.6 (0.8-1.8); Anion Gap 12.0 mmol/L (3-11); Aspartate Aminotrans (AST/SGOT 82.0 U/L (12-37); Bilirubin, Total 1.2 mg/dL (0.1-1.0); Blood Urea Nitrogen 12.0 mg/dL (8-24); CO2, Blood 24.0 mmol/L (21-32); Calcium, Blood 8.6 mg/dL (8.5-10.1); Chloride, Blood 94.0 mmol/L (98-108); Creatinine, Blood 0.57 mg/dL (0.60-1.20); Globulin, Blood 4.9 g/dL (2.2-4.0); Glucose, Blood 149.0 mg/dL (70-99); Potassium, Blood 3.3 mmol/L (3.5-5.5); Sodium, Blood 127.0 mmol/L (136-145); Total Protein, Blood 7.6 g/dL (6.4-8.2)
[2025-06-20] MEDS ORDERED: CefTRIAXone Sodium 1,000 MG in NS 100 ML IV ONE (13:20)
[2025-06-20] MEDS ORDERED: Vancomycin (Pharmacy Consult) IV PRN (13:20)
[2025-06-20] MEDS ORDERED: MetroNIDAZOLE 500MG/NS 100 ml 100 ML IV ONE (13:20)
[2025-06-20] MEDS ORDERED: Morphine Sulfate 4 MG/1 ML Injection IV ONE (13:30)
[2025-06-20] MEDS ORDERED: Vancomycin HCL 2,500 MG in NS 500 ML IV ONE (13:30)
[2025-06-20] MEDS ORDERED: NS 1,000 ML IV SCH (13:45)
[2025-06-20 13:55] VITALS: BP 153/82
== END 2025-06-20 14:41 | disposition short-term general hospital (02) ==
LOC: ER 11:51
PROVIDERS: Emergency Medicine
DX: R53.1 Weakness (principal); E87.1 Hypo-osmolality and hyponatremia; E87.6 Hypokalemia; R74.01 Elevation of levels of liver transaminase levels; D69.6 Thrombocytopenia, unspecified; Z88.8 Allergy status to other drugs, medicaments and biological substances; Z79.84 Long term (current) use of oral hypoglycemic drugs; Z79.899 Other long term (current) drug therapy; F17.210 Nicotine dependence, cigarettes, uncomplicated
CPT/HCPCS: 36415; 80053; 85025; 85651; 86140; 87040; 87077; 87147; 87186; 96365; 96375; 99285-25; J0696; J2270; J3373; J7040

== ENCOUNTER 2025-06-26 07:32 | Day surgery (SDC) | payer BC ==
[2025-06-26] MEDS ORDERED: CefTRIAXone Sodium 2,000 MG in NS 100 ML IV SCH (08:10)
[2025-06-26 09:44] VITALS: BP 147/82
[2025-06-26] MEDS ORDERED: Acetaminophen650 M1 PO (09:47)
[2025-06-26] MEDS ORDERED: Aspir 8181 MG PO (09:47)
[2025-06-26] MEDS ORDERED: GABA800 PO (09:48)
[2025-06-26] MEDS ORDERED: Voltaren100 GM TOP (09:48)
[2025-06-26] MEDS ORDERED: HYDHCL25 PO (09:49)
[2025-06-26] MEDS ORDERED: MS Contin15 MG PO (09:50)
[2025-06-26] MEDS ORDERED: Methocarbamol500 MG PO (09:51)
[2025-06-26] MEDS ORDERED: OXYC10TA19 PO (09:51)
[2025-06-26] MEDS ORDERED: ONDANSETRON ODT16 MG PO (09:51)
[2025-06-26] MEDS ORDERED: MIRALAX11914 PO (09:52)
== END 2025-06-26 10:35 | disposition home or self-care (01) ==
LOC: ATC 07:32
DX: M46.57 Other infective spondylopathies, lumbosacral region (principal); M00.062 Staphylococcal arthritis, left knee; B95.61 Methicillin susceptible Staphylococcus aureus infection as the cause of diseases classified elsewhere
CPT/HCPCS: 96365; J0696

== ENCOUNTER 2025-06-27 03:54 | Day surgery (SDC) | payer BC ==
[~2025-06-27 03:54] MED LIST changes: +Acetaminophen650 M1 PO; +Aspir 8181 MG PO; +CefTRIAXone Sodium 2,000 MG in NS 100 ML IV SCH; +GABA800 PO; +HYDHCL25 PO; +MIRALAX11914 PO; +MS Contin15 MG PO; +Methocarbamol500 MG PO; +ONDANSETRON ODT16 MG PO; +OXYC10TA19 PO; +Voltaren100 GM TOP
[2025-06-27 09:17] VITALS: BP 134/75
== END 2025-06-27 10:13 | disposition home or self-care (01) ==
LOC: ATC 03:54
DX: M46.56 Other infective spondylopathies, lumbar region (principal); M00.062 Staphylococcal arthritis, left knee; B95.61 Methicillin susceptible Staphylococcus aureus infection as the cause of diseases classified elsewhere
CPT/HCPCS: 96365; J0696

== ENCOUNTER 2025-06-28 02:28 | Day surgery (SDC) | payer BC ==
[2025-06-28 09:18] VITALS: BP 141/77
== END 2025-06-28 10:05 | disposition home or self-care (01) ==
LOC: ATC 02:28
DX: M00.062 Staphylococcal arthritis, left knee (principal); M46.56 Other infective spondylopathies, lumbar region; B95.61 Methicillin susceptible Staphylococcus aureus infection as the cause of diseases classified elsewhere; Z79.82 Long term (current) use of aspirin; Z79.899 Other long term (current) drug therapy
CPT/HCPCS: 96365; J0696

== ENCOUNTER 2025-06-29 00:41 | Day surgery (SDC) | payer BC ==
[~2025-06-29 00:41] MED LIST changes: -CefTRIAXone Sodium 2,000 MG in NS 100 ML IV SCH
[2025-06-29] MEDS ORDERED: CefTRIAXone Sodium 2,000 MG in NS 100 ML IV SCH (01:00)
[2025-06-29 10:30] VITALS: BP 145/75
== END 2025-06-29 10:52 | disposition home or self-care (01) ==
LOC: ATC 00:41
DX: M46.56 Other infective spondylopathies, lumbar region (principal); M00.062 Staphylococcal arthritis, left knee; B95.61 Methicillin susceptible Staphylococcus aureus infection as the cause of diseases classified elsewhere
CPT/HCPCS: 96365; J0696

== ENCOUNTER 2025-06-30 00:25 | Day surgery (SDC) | payer BC ==
[2025-06-30] MEDS ORDERED: CefTRIAXone Sodium 2,000 MG in NS 100 ML IV SCH (06:00)
[2025-06-30 11:05] VITALS: BP 125/75
== END 2025-06-30 11:23 | disposition home or self-care (01) ==
LOC: ATC 00:25
DX: M46.56 Other infective spondylopathies, lumbar region (principal); B95.61 Methicillin susceptible Staphylococcus aureus infection as the cause of diseases classified elsewhere; M00.9 Pyogenic arthritis, unspecified; Z79.899 Other long term (current) drug therapy
CPT/HCPCS: J0696

== ENCOUNTER 2025-07-01 00:20 | Day surgery (SDC) | payer BC ==
[2025-07-01] MEDS ORDERED: CefTRIAXone Sodium 2,000 MG in NS 100 ML IV SCH (06:00)
[2025-07-01 10:30] VITALS: BP 130/78
[2025-07-01 11:16] LABS: BASOPHILS ABSOLUTE AUTO 0.04 K/mm3 (0.00-0.23); BASOPHILS PERCENT AUTO 1 % (0-2); EOSINOPHILS ABSOLUTE AUTO 0.07 K/mm3 (0.00-0.68); EOSINOPHILS PERCENT AUTO 1 % (0-6); Hematocrit 35.6 % (37.0-53.0); Hemoglobin 11.8 g/dL (13.5-17.5); IMMATURE GRAN ABSOLUTE AUTO 0.06 K/mm3 (0.00-0.10); IMMATURE GRAN PERCENT AUTO 1 % (0-1); LYMPHOCYTES ABSOLUTE AUTO 0.98 K/mm3 (0.84-5.20); LYMPHOCYTES PERCENT AUTO 16 % (21-46); MONOCYTES ABSOLUTE AUTO 0.51 K/mm3 (0.16-1.47); MONOCYTES PERCENT AUTO 9 % (4-13); Mean Corpuscular HGB Conc 33.1 g/dL (31.5-36.5); Mean Corpuscular Volume 84 fL (80-100); NEUTROPHILS ABSOLUTE AUTO 4.37 K/mm3 (1.96-9.15); NEUTROPHILS PERCENT AUTO 72 % (41-73); NRBC ABSOLUTE 0.00 K/mm3 (0.00-0.02); NRBC Auto 0.0 /100 WBC (0.0-0.2); Platelet Count 302 K/mm3 (150-400); RDW Coefficient Variation 13.8 % (11.7-14.2); RDW Standard Deviation 41.6 fL (35.1-46.3)
== END 2025-07-01 11:17 | disposition home or self-care (01) ==
LOC: ATC 00:20
PROVIDERS: Internal Medicine Infectious Disease
DX: M46.56 Other infective spondylopathies, lumbar region (principal); B95.61 Methicillin susceptible Staphylococcus aureus infection as the cause of diseases classified elsewhere; M00.9 Pyogenic arthritis, unspecified; Z79.899 Other long term (current) drug therapy
CPT/HCPCS: 36591; 85025; 96365; J0696

== ENCOUNTER 2025-07-02 00:54 | Day surgery (SDC) | payer BC ==
[2025-07-02] MEDS ORDERED: CefTRIAXone Sodium 2,000 MG in NS 100 ML IV SCH (01:00)
[2025-07-02 10:50] VITALS: BP 134/83
[2025-07-02 11:17] LABS: BASOPHILS ABSOLUTE AUTO 0.05 K/mm3 (0.00-0.23); BASOPHILS PERCENT AUTO 1 % (0-2); EOSINOPHILS ABSOLUTE AUTO 0.09 K/mm3 (0.00-0.68); EOSINOPHILS PERCENT AUTO 2 % (0-6); Hematocrit 36.7 % (37.0-53.0); Hemoglobin 11.7 g/dL (13.5-17.5); IMMATURE GRAN ABSOLUTE AUTO 0.04 K/mm3 (0.00-0.10); IMMATURE GRAN PERCENT AUTO 1 % (0-1); LYMPHOCYTES ABSOLUTE AUTO 0.99 K/mm3 (0.84-5.20); LYMPHOCYTES PERCENT AUTO 20 % (21-46); MONOCYTES ABSOLUTE AUTO 0.41 K/mm3 (0.16-1.47); MONOCYTES PERCENT AUTO 8 % (4-13); Mean Corpuscular HGB Conc 31.9 g/dL (31.5-36.5); Mean Corpuscular Volume 85 fL (80-100); NEUTROPHILS ABSOLUTE AUTO 3.35 K/mm3 (1.96-9.15); NEUTROPHILS PERCENT AUTO 68 % (41-73); NRBC ABSOLUTE 0.00 K/mm3 (0.00-0.02); NRBC Auto 0.0 /100 WBC (0.0-0.2); Platelet Count 388 K/mm3 (150-400); RDW Coefficient Variation 13.2 % (11.7-14.2); RDW Standard Deviation 41.3 fL (35.1-46.3)
[2025-07-02 12:04] LABS: Alanine Aminotransfer (ALT/SGP 56.0 U/L (12-78); Albumin, Blood 2.3 g/dL (3.4-5.0); Albumin/Globulin Ratio 0.4 (0.8-1.8); Anion Gap 5.0 mmol/L (3-11); Aspartate Aminotrans (AST/SGOT 35.0 U/L (12-37); Bilirubin, Total 0.3 mg/dL (0.1-1.0); Blood Urea Nitrogen 10.0 mg/dL (8-24); C-REACTIVE PROTEIN, EXT RANGE 3.77 mg/dL (0.000-0.300); CO2, Blood 33.0 mmol/L (21-32); Calcium, Blood 8.7 mg/dL (8.5-10.1); Chloride, Blood 99.0 mmol/L (98-108); Creatinine, Blood 0.57 mg/dL (0.60-1.20); Globulin, Blood 5.6 g/dL (2.2-4.0); Glucose, Blood 139.0 mg/dL (70-99); Potassium, Blood 4.1 mmol/L (3.5-5.5); Sodium, Blood 133.0 mmol/L (136-145); Total Protein, Blood 7.9 g/dL (6.4-8.2)
== END 2025-07-02 11:20 | disposition home or self-care (01) ==
LOC: ATC 00:54
PROVIDERS: Internal Medicine Infectious Disease; Physician Assistant
DX: M46.56 Other infective spondylopathies, lumbar region (principal); M00.062 Staphylococcal arthritis, left knee; B95.61 Methicillin susceptible Staphylococcus aureus infection as the cause of diseases classified elsewhere; E87.1 Hypo-osmolality and hyponatremia; E87.6 Hypokalemia; Z79.899 Other long term (current) drug therapy
CPT/HCPCS: 36591; 80053; 85025; 85060; 86140; 96365; 99211; J0696

== ENCOUNTER 2025-07-03 02:27 | Day surgery (SDC) | payer BC ==
[2025-07-03] MEDS ORDERED: CefTRIAXone Sodium 2,000 MG in NS 100 ML IV SCH (06:00)
[2025-07-03 10:29] VITALS: BP 169/83
== END 2025-07-03 11:00 | disposition home or self-care (01) ==
LOC: ATC 02:27
DX: M46.56 Other infective spondylopathies, lumbar region (principal); M00.062 Staphylococcal arthritis, left knee; B95.61 Methicillin susceptible Staphylococcus aureus infection as the cause of diseases classified elsewhere
CPT/HCPCS: 96365; J0696

== ENCOUNTER 2025-07-04 03:32 | Day surgery (SDC) | payer BC ==
[~2025-07-04 03:32] MED LIST changes: +CefTRIAXone Sodium 2,000 MG in NS 100 ML IV SCH
[2025-07-04 10:13] VITALS: BP 152/91
== END 2025-07-04 10:46 | disposition home or self-care (01) ==
LOC: ATC 03:32
DX: M46.56 Other infective spondylopathies, lumbar region (principal); M00.062 Staphylococcal arthritis, left knee; B95.61 Methicillin susceptible Staphylococcus aureus infection as the cause of diseases classified elsewhere
CPT/HCPCS: 96365; 99211; J0696

== ENCOUNTER 2025-07-05 00:22 | Day surgery (SDC) | payer BC ==
[~2025-07-05 00:22] MED LIST changes: -CefTRIAXone Sodium 2,000 MG in NS 100 ML IV SCH
[2025-07-05] MEDS ORDERED: CefTRIAXone Sodium 2,000 MG in NS 100 ML IV SCH (06:00)
[2025-07-05 10:20] VITALS: BP 141/86
== END 2025-07-05 10:57 | disposition home or self-care (01) ==
LOC: ATC 00:22
DX: M46.56 Other infective spondylopathies, lumbar region (principal); M00.062 Staphylococcal arthritis, left knee; B95.61 Methicillin susceptible Staphylococcus aureus infection as the cause of diseases classified elsewhere
CPT/HCPCS: 96365; J0696

== ENCOUNTER 2025-07-06 00:35 | Day surgery (SDC) | payer BC ==
[2025-07-06] MEDS ORDERED: CefTRIAXone Sodium 2,000 MG in NS 100 ML IV SCH (01:00)
[2025-07-06 10:29] VITALS: BP 148/80
== END 2025-07-06 10:58 | disposition home or self-care (01) ==
LOC: ATC 00:35
DX: M46.57 Other infective spondylopathies, lumbosacral region (principal); B95.61 Methicillin susceptible Staphylococcus aureus infection as the cause of diseases classified elsewhere
CPT/HCPCS: 96365; J0696

== ENCOUNTER 2025-07-07 01:48 | Day surgery (SDC) | payer BC ==
[2025-07-07] MEDS ORDERED: CefTRIAXone Sodium 2,000 MG in NS 100 ML IV SCH (06:00)
[2025-07-07 10:22] VITALS: BP 125/76
[2025-07-08] MEDS ORDERED: CEFTRIAXONE2 G1 IV (11:13)
== END 2025-07-07 10:50 | disposition home or self-care (01) ==
LOC: ATC 01:48
DX: M46.57 Other infective spondylopathies, lumbosacral region (principal); B95.61 Methicillin susceptible Staphylococcus aureus infection as the cause of diseases classified elsewhere
CPT/HCPCS: 96365; J0696

== ENCOUNTER 2025-07-08 06:30 | Day surgery (SDC) | payer BC ==
[~2025-07-08 06:30] MED LIST changes: +CefTRIAXone Sodium 2,000 MG in NS 100 ML IV SCH
[2025-07-08 11:10] VITALS: BP 126/68
[2025-07-08] MEDS ORDERED: CEFTRIAXONE2 G1 IV (11:13)
[2025-07-08 12:17] LABS: BASOPHILS ABSOLUTE AUTO 0.04 K/mm3 (0.00-0.23); BASOPHILS PERCENT AUTO 1 % (0-2); EOSINOPHILS ABSOLUTE AUTO 0.13 K/mm3 (0.00-0.68); EOSINOPHILS PERCENT AUTO 4 % (0-6); Hematocrit 34.7 % (37.0-53.0); Hemoglobin 11.0 g/dL (13.5-17.5); IMMATURE GRAN ABSOLUTE AUTO 0.02 K/mm3 (0.00-0.10); IMMATURE GRAN PERCENT AUTO 1 % (0-1); LYMPHOCYTES ABSOLUTE AUTO 0.98 K/mm3 (0.84-5.20); LYMPHOCYTES PERCENT AUTO 27 % (21-46); MONOCYTES ABSOLUTE AUTO 0.50 K/mm3 (0.16-1.47); MONOCYTES PERCENT AUTO 14 % (4-13); Mean Corpuscular HGB Conc 31.7 g/dL (31.5-36.5); Mean Corpuscular Volume 85 fL (80-100); NEUTROPHILS ABSOLUTE AUTO 1.97 K/mm3 (1.96-9.15); NEUTROPHILS PERCENT AUTO 54 % (41-73); NRBC ABSOLUTE 0.00 K/mm3 (0.00-0.02); NRBC Auto 0.0 /100 WBC (0.0-0.2); Platelet Count 338 K/mm3 (150-400); RDW Coefficient Variation 13.2 % (11.7-14.2); RDW Standard Deviation 40.8 fL (35.1-46.3)
[2025-07-08 13:05] LABS: C-REACTIVE PROTEIN, EXT RANGE 3.46 mg/dL (0.000-0.300)
[2025-07-08 13:24] LABS: Alanine Aminotransfer (ALT/SGP 24.0 U/L (12-78); Albumin, Blood 2.3 g/dL (3.4-5.0); Albumin/Globulin Ratio 0.4 (0.8-1.8); Anion Gap 10.0 mmol/L (3-11); Aspartate Aminotrans (AST/SGOT 17.0 U/L (12-37); Bilirubin, Total 0.3 mg/dL (0.1-1.0); Blood Urea Nitrogen 12.0 mg/dL (8-24); CO2, Blood 28.0 mmol/L (21-32); Calcium, Blood 8.5 mg/dL (8.5-10.1); Chloride, Blood 101.0 mmol/L (98-108); Creatinine, Blood 0.69 mg/dL (0.60-1.20); Globulin, Blood 5.4 g/dL (2.2-4.0); Glucose, Blood 136.0 mg/dL (70-99); Potassium, Blood 3.7 mmol/L (3.5-5.5); Sodium, Blood 135.0 mmol/L (136-145); Total Protein, Blood 7.7 g/dL (6.4-8.2)
== END 2025-07-08 11:23 | disposition home or self-care (01) ==
LOC: ATC 06:30
PROVIDERS: Internal Medicine Infectious Disease
DX: M46.57 Other infective spondylopathies, lumbosacral region (principal)
CPT/HCPCS: 36591; 80053; 85025; 86140; 96365; J0696

== ENCOUNTER 2025-07-09 00:46 | Day surgery (SDC) | payer BC ==
[~2025-07-09 00:46] MED LIST changes: +CEFTRIAXONE2 G1 IV; -CefTRIAXone Sodium 2,000 MG in NS 100 ML IV SCH
[2025-07-09] MEDS ORDERED: CefTRIAXone Sodium 2,000 MG in NS 100 ML IV SCH (01:00)
[2025-07-09 10:15] VITALS: BP 144/76
== END 2025-07-09 10:46 | disposition home or self-care (01) ==
LOC: ATC 00:46
DX: M46.57 Other infective spondylopathies, lumbosacral region (principal)
CPT/HCPCS: 96365; J0696

== ENCOUNTER 2025-07-10 01:19 | Day surgery (SDC) | payer BC ==
[~2025-07-10 01:19] MED LIST changes: +CefTRIAXone Sodium 2,000 MG in NS 100 ML IV SCH
[2025-07-10 10:36] VITALS: BP 124/65
== END 2025-07-10 10:55 | disposition home or self-care (01) ==
LOC: ATC 01:19
DX: M46.56 Other infective spondylopathies, lumbar region (principal); M00.062 Staphylococcal arthritis, left knee; B95.61 Methicillin susceptible Staphylococcus aureus infection as the cause of diseases classified elsewhere
CPT/HCPCS: 96365; J0696

== ENCOUNTER 2025-07-11 10:11 | Day surgery (SDC) | payer BC ==
[2025-07-11 10:19] VITALS: BP 145/70
== END 2025-07-11 11:00 | disposition home or self-care (01) ==
LOC: ATC 10:11
DX: M46.57 Other infective spondylopathies, lumbosacral region (principal)
CPT/HCPCS: 96365; J0696

== ENCOUNTER 2025-07-12 02:11 | Day surgery (SDC) | payer BC ==
[~2025-07-12 02:11] MED LIST changes: -CefTRIAXone Sodium 2,000 MG in NS 100 ML IV SCH
[2025-07-12] MEDS ORDERED: CefTRIAXone Sodium 2,000 MG in NS 100 ML IV SCH (06:00)
[2025-07-12 10:12] VITALS: BP 160/90
== END 2025-07-12 10:50 | disposition home or self-care (01) ==
LOC: ATC 02:11
DX: M46.56 Other infective spondylopathies, lumbar region (principal); M00.062 Staphylococcal arthritis, left knee; B95.61 Methicillin susceptible Staphylococcus aureus infection as the cause of diseases classified elsewhere; E87.1 Hypo-osmolality and hyponatremia; E87.6 Hypokalemia
CPT/HCPCS: 96365; J0696

== ENCOUNTER 2025-07-13 00:18 | Day surgery (SDC) | payer BC ==
[2025-07-13] MEDS ORDERED: CefTRIAXone Sodium 2,000 MG in NS 100 ML IV SCH (01:00)
[2025-07-13 10:19] VITALS: BP 152/82
== END 2025-07-13 11:03 | disposition home or self-care (01) ==
LOC: ATC 00:18
DX: M46.56 Other infective spondylopathies, lumbar region (principal); M00.062 Staphylococcal arthritis, left knee; B95.61 Methicillin susceptible Staphylococcus aureus infection as the cause of diseases classified elsewhere
CPT/HCPCS: 96365; J0696

== ENCOUNTER 2025-07-14 01:23 | Day surgery (SDC) | payer BC ==
[~2025-07-14 01:23] MED LIST changes: +CefTRIAXone Sodium 2,000 MG in NS 100 ML IV SCH
[2025-07-14 10:22] VITALS: BP 157/88
== END 2025-07-14 11:01 | disposition home or self-care (01) ==
LOC: ATC 01:23
DX: M46.57 Other infective spondylopathies, lumbosacral region (principal)
CPT/HCPCS: 96365; J0696

== ENCOUNTER 2025-07-15 01:26 | Day surgery (SDC) | payer BC ==
[2025-07-15 10:23] VITALS: BP 132/77
[2025-07-15 11:01] LABS: BASOPHILS ABSOLUTE AUTO 0.07 K/mm3 (0.00-0.23); BASOPHILS PERCENT AUTO 1 % (0-2); EOSINOPHILS ABSOLUTE AUTO 0.32 K/mm3 (0.00-0.68); EOSINOPHILS PERCENT AUTO 6 % (0-6); Hematocrit 36.7 % (37.0-53.0); Hemoglobin 11.9 g/dL (13.5-17.5); IMMATURE GRAN ABSOLUTE AUTO 0.08 K/mm3 (0.00-0.10); IMMATURE GRAN PERCENT AUTO 1 % (0-1); LYMPHOCYTES ABSOLUTE AUTO 1.25 K/mm3 (0.84-5.20); LYMPHOCYTES PERCENT AUTO 22 % (21-46); MONOCYTES ABSOLUTE AUTO 0.54 K/mm3 (0.16-1.47); MONOCYTES PERCENT AUTO 10 % (4-13); Mean Corpuscular HGB Conc 32.4 g/dL (31.5-36.5); Mean Corpuscular Volume 84 fL (80-100); NEUTROPHILS ABSOLUTE AUTO 3.43 K/mm3 (1.96-9.15); NEUTROPHILS PERCENT AUTO 60 % (41-73); NRBC ABSOLUTE 0.00 K/mm3 (0.00-0.02); NRBC Auto 0.0 /100 WBC (0.0-0.2); Platelet Count 273 K/mm3 (150-400); RDW Coefficient Variation 12.9 % (11.7-14.2); RDW Standard Deviation 39.2 fL (35.1-46.3)
--- NOTE | 2025-07-15 11:27 | NUR ---
Labs were drawn this morning with IV start, however the specimen was hemolyzed and unable to be resulted.
== END 2025-07-15 11:08 | disposition home or self-care (01) ==
LOC: ATC 01:26
PROVIDERS: Internal Medicine Infectious Disease
DX: M46.57 Other infective spondylopathies, lumbosacral region (principal)
CPT/HCPCS: 36591; 85025; 96365; 99211; J0696

== ENCOUNTER 2025-07-16 00:48 | Day surgery (SDC) | payer BC ==
[~2025-07-16 00:48] MED LIST changes: -CefTRIAXone Sodium 2,000 MG in NS 100 ML IV SCH
[2025-07-16] MEDS ORDERED: CefTRIAXone Sodium 2,000 MG in NS 100 ML IV SCH (01:00)
[2025-07-16 09:53] VITALS: BP 147/91
[2025-07-16 10:27] LABS: Alanine Aminotransfer (ALT/SGP 16.0 U/L (12-78); Albumin, Blood 2.5 g/dL (3.4-5.0); Albumin/Globulin Ratio 0.5 (0.8-1.8); Anion Gap 8.0 mmol/L (3-11); Aspartate Aminotrans (AST/SGOT 16.0 U/L (12-37); Bilirubin, Total 0.3 mg/dL (0.1-1.0); Blood Urea Nitrogen 14.0 mg/dL (8-24); C-REACTIVE PROTEIN, EXT RANGE 0.887 mg/dL (0.000-0.300); CO2, Blood 27.0 mmol/L (21-32); Calcium, Blood 8.7 mg/dL (8.5-10.1); Chloride, Blood 104.0 mmol/L (98-108); Creatinine, Blood 0.69 mg/dL (0.60-1.20); Globulin, Blood 5.5 g/dL (2.2-4.0); Glucose, Blood 105.0 mg/dL (70-99); Potassium, Blood 4.0 mmol/L (3.5-5.5); Sodium, Blood 135.0 mmol/L (136-145); Total Protein, Blood 8.0 g/dL (6.4-8.2)
--- NOTE | 2025-07-16 12:08 | NUR ---
CBC RESULTS FROM 07/15/25 AND CMP RESULTS FROM 07/16/[address] BUCKLEY.
== END 2025-07-16 10:11 | disposition home or self-care (01) ==
LOC: ATC 00:48
PROVIDERS: Internal Medicine Infectious Disease
DX: M46.56 Other infective spondylopathies, lumbar region (principal); B95.61 Methicillin susceptible Staphylococcus aureus infection as the cause of diseases classified elsewhere; M00.062 Staphylococcal arthritis, left knee; Z79.899 Other long term (current) drug therapy
CPT/HCPCS: 36591; 80053; 86140; 96365; J0696

== ENCOUNTER 2025-07-18 01:02 | Day surgery (SDC) | payer BC ==
[2025-07-18] MEDS ORDERED: CefTRIAXone Sodium 2,000 MG in NS 100 ML IV SCH (06:00)
[2025-07-18 10:52] VITALS: BP 144/86
== END 2025-07-18 11:08 | disposition home or self-care (01) ==
LOC: ATC 01:02
DX: M46.57 Other infective spondylopathies, lumbosacral region (principal)
CPT/HCPCS: 96365; J0696

== ENCOUNTER 2025-07-19 04:06 | Day surgery (SDC) | payer BC ==
[~2025-07-19 04:06] MED LIST changes: +CefTRIAXone Sodium 2,000 MG in NS 100 ML IV SCH
[2025-07-19 10:37] VITALS: BP 143/82
== END 2025-07-19 10:52 | disposition home or self-care (01) ==
LOC: ATC 04:06
DX: M46.57 Other infective spondylopathies, lumbosacral region (principal); M00.062 Staphylococcal arthritis, left knee; B95.61 Methicillin susceptible Staphylococcus aureus infection as the cause of diseases classified elsewhere; M54.42 Lumbago with sciatica, left side; E87.1 Hypo-osmolality and hyponatremia; E87.6 Hypokalemia; Z79.891 Long term (current) use of opiate analgesic
CPT/HCPCS: 96365; J0696

== ENCOUNTER 2025-07-20 02:35 | Day surgery (SDC) | payer BC ==
[2025-07-20 10:35] VITALS: BP 163/96
== END 2025-07-20 11:03 | disposition home or self-care (01) ==
LOC: ATC 02:35
DX: M46.56 Other infective spondylopathies, lumbar region (principal); M00.062 Staphylococcal arthritis, left knee; B95.61 Methicillin susceptible Staphylococcus aureus infection as the cause of diseases classified elsewhere
CPT/HCPCS: 96365; J0696

== ENCOUNTER 2025-07-21 02:40 | Day surgery (SDC) | payer BC ==
[2025-07-21 10:26] VITALS: BP 161/89
== END 2025-07-21 10:55 | disposition home or self-care (01) ==
LOC: ATC 02:40
DX: M46.57 Other infective spondylopathies, lumbosacral region (principal); M00.9 Pyogenic arthritis, unspecified; M54.42 Lumbago with sciatica, left side; E87.1 Hypo-osmolality and hyponatremia; E87.6 Hypokalemia; Z79.82 Long term (current) use of aspirin; Z79.891 Long term (current) use of opiate analgesic; Z79.899 Other long term (current) drug therapy
CPT/HCPCS: 96365; J0696

== ENCOUNTER 2025-07-22 07:51 | Day surgery (SDC) | payer BC ==
[~2025-07-22 07:51] MED LIST changes: -CefTRIAXone Sodium 2,000 MG in NS 100 ML IV SCH
[2025-07-22 10:19] VITALS: BP 164/87
[2025-07-23] MEDS ORDERED: CefTRIAXone Sodium 2,000 MG in NS 100 ML IV SCH (01:00)
== END 2025-07-22 10:50 | disposition home or self-care (01) ==
LOC: ATC 07:51
DX: M46.56 Other infective spondylopathies, lumbar region (principal); M00.062 Staphylococcal arthritis, left knee; B95.61 Methicillin susceptible Staphylococcus aureus infection as the cause of diseases classified elsewhere; E87.1 Hypo-osmolality and hyponatremia; E87.6 Hypokalemia
CPT/HCPCS: 96365; J0696

== ENCOUNTER 2025-07-23 02:20 | Day surgery (SDC) | payer BC ==
[2025-07-23] MEDS ORDERED: CefTRIAXone Sodium 2,000 MG in NS 100 ML IV SCH (06:00)
[2025-07-23 10:30] VITALS: BP 136/83
[2025-07-23 11:11] LABS: BASOPHILS ABSOLUTE AUTO 0.07 K/mm3 (0.00-0.23); BASOPHILS PERCENT AUTO 1 % (0-2); EOSINOPHILS ABSOLUTE AUTO 0.19 K/mm3 (0.00-0.68); EOSINOPHILS PERCENT AUTO 3 % (0-6); Hematocrit 37.7 % (37.0-53.0); Hemoglobin 12.2 g/dL (13.5-17.5); IMMATURE GRAN ABSOLUTE AUTO 0.06 K/mm3 (0.00-0.10); IMMATURE GRAN PERCENT AUTO 1 % (0-1); LYMPHOCYTES ABSOLUTE AUTO 1.54 K/mm3 (0.84-5.20); LYMPHOCYTES PERCENT AUTO 24 % (21-46); MONOCYTES ABSOLUTE AUTO 0.64 K/mm3 (0.16-1.47); MONOCYTES PERCENT AUTO 10 % (4-13); Mean Corpuscular HGB Conc 32.4 g/dL (31.5-36.5); Mean Corpuscular Volume 83 fL (80-100); NEUTROPHILS ABSOLUTE AUTO 3.98 K/mm3 (1.96-9.15); NEUTROPHILS PERCENT AUTO 61 % (41-73); NRBC ABSOLUTE 0.00 K/mm3 (0.00-0.02); NRBC Auto 0.0 /100 WBC (0.0-0.2); Platelet Count 241 K/mm3 (150-400); RDW Coefficient Variation 13.6 % (11.7-14.2); RDW Standard Deviation 41.4 fL (35.1-46.3)
[2025-07-23 11:34] LABS: C-REACTIVE PROTEIN, EXT RANGE 0.696 mg/dL (0.000-0.300)
[2025-07-23 11:36] LABS: Alanine Aminotransfer (ALT/SGP 16.0 U/L (12-78); Albumin, Blood 2.9 g/dL (3.4-5.0); Albumin/Globulin Ratio 0.6 (0.8-1.8); Anion Gap 5.0 mmol/L (3-11); Aspartate Aminotrans (AST/SGOT 15.0 U/L (12-37); Bilirubin, Total 0.2 mg/dL (0.1-1.0); Blood Urea Nitrogen 19.0 mg/dL (8-24); CO2, Blood 29.0 mmol/L (21-32); Calcium, Blood 8.6 mg/dL (8.5-10.1); Chloride, Blood 106.0 mmol/L (98-108); Creatinine, Blood 0.75 mg/dL (0.60-1.20); Globulin, Blood 4.9 g/dL (2.2-4.0); Glucose, Blood 105.0 mg/dL (70-99); Potassium, Blood 3.9 mmol/L (3.5-5.5); Sodium, Blood 136.0 mmol/L (136-145); Total Protein, Blood 7.8 g/dL (6.4-8.2)
== END 2025-07-23 11:12 | disposition home or self-care (01) ==
LOC: ATC 02:20
PROVIDERS: Internal Medicine Infectious Disease
DX: M46.56 Other infective spondylopathies, lumbar region (principal); M00.062 Staphylococcal arthritis, left knee; B95.61 Methicillin susceptible Staphylococcus aureus infection as the cause of diseases classified elsewhere; E87.1 Hypo-osmolality and hyponatremia; E87.6 Hypokalemia
CPT/HCPCS: 36591; 80053; 85025; 86140; J0696

== ENCOUNTER 2025-07-24 03:28 | Day surgery (SDC) | payer BC ==
[2025-07-24] MEDS ORDERED: CefTRIAXone Sodium 2,000 MG in NS 100 ML IV SCH (06:00)
[2025-07-24 10:26] VITALS: BP 142/85
== END 2025-07-24 10:54 | disposition home or self-care (01) ==
LOC: ATC 03:28
DX: M46.56 Other infective spondylopathies, lumbar region (principal); M00.062 Staphylococcal arthritis, left knee; B95.61 Methicillin susceptible Staphylococcus aureus infection as the cause of diseases classified elsewhere; Z79.899 Other long term (current) drug therapy
CPT/HCPCS: 96365; J0696

== ENCOUNTER 2025-07-26 00:17 | Day surgery (SDC) | payer BC ==
[2025-07-26] MEDS ORDERED: CefTRIAXone Sodium 2,000 MG in NS 100 ML IV SCH (06:00)
[2025-07-26 10:20] VITALS: BP 142/94
== END 2025-07-26 10:47 | disposition home or self-care (01) ==
LOC: ATC 00:17
DX: M46.56 Other infective spondylopathies, lumbar region (principal); M00.062 Staphylococcal arthritis, left knee; M54.42 Lumbago with sciatica, left side; B95.61 Methicillin susceptible Staphylococcus aureus infection as the cause of diseases classified elsewhere; E87.1 Hypo-osmolality and hyponatremia; E87.6 Hypokalemia; Z79.82 Long term (current) use of aspirin; Z79.899 Other long term (current) drug therapy
CPT/HCPCS: 96365; J0696

== ENCOUNTER 2025-07-27 04:32 | Day surgery (SDC) | payer BC ==
[2025-07-27] MEDS ORDERED: CefTRIAXone Sodium 2,000 MG in NS 100 ML IV SCH (06:00)
[2025-07-27 10:35] VITALS: BP 121/70
== END 2025-07-27 10:55 | disposition home or self-care (01) ==
LOC: ATC 04:32
DX: M46.57 Other infective spondylopathies, lumbosacral region (principal)
CPT/HCPCS: 96365; J0696

== ENCOUNTER 2025-07-28 02:44 | Day surgery (SDC) | payer BC ==
[~2025-07-28 02:44] MED LIST changes: +CefTRIAXone Sodium 2,000 MG in NS 100 ML IV SCH
[2025-07-28 10:25] VITALS: BP 135/81
== END 2025-07-28 10:51 | disposition home or self-care (01) ==
LOC: ATC 02:44
DX: M46.56 Other infective spondylopathies, lumbar region (principal); M00.062 Staphylococcal arthritis, left knee; B95.61 Methicillin susceptible Staphylococcus aureus infection as the cause of diseases classified elsewhere
CPT/HCPCS: 96365; J0696

== ENCOUNTER → 2025-07-28 | Outpatient (CLI) | payer BC ==
[2025-07-28 19:10] LABS: Source, Urine Voided
[2025-07-28 19:27] LABS: Red Blood Cells, Urine 50-100 /hpf (0-2); White Blood Cells, Urine 0-2 /hpf (0-5)
== END ==
LOC: LAB 18:52 → LAB SHORT 18:52
PROVIDERS: Physician Assistant
DX: R31.9 Hematuria, unspecified (principal)
CPT/HCPCS: 81015; 87086

== ENCOUNTER 2025-07-29 07:09 | Day surgery (SDC) | payer BC ==
[~2025-07-29 07:09] MED LIST changes: -CefTRIAXone Sodium 2,000 MG in NS 100 ML IV SCH
[2025-07-29] MEDS ORDERED: CefTRIAXone Sodium 2,000 MG in NS 100 ML IV SCH (07:45)
[2025-07-29 10:22] VITALS: BP 135/82
[2025-07-29 11:07] LABS: BASOPHILS ABSOLUTE AUTO 0.09 K/mm3 (0.00-0.23); BASOPHILS PERCENT AUTO 2 % (0-2); EOSINOPHILS ABSOLUTE AUTO 0.21 K/mm3 (0.00-0.68); EOSINOPHILS PERCENT AUTO 3 % (0-6); Hematocrit 39.0 % (37.0-53.0); Hemoglobin 12.8 g/dL (13.5-17.5); IMMATURE GRAN ABSOLUTE AUTO 0.04 K/mm3 (0.00-0.10); IMMATURE GRAN PERCENT AUTO 1 % (0-1); LYMPHOCYTES ABSOLUTE AUTO 1.88 K/mm3 (0.84-5.20); LYMPHOCYTES PERCENT AUTO 31 % (21-46); MONOCYTES ABSOLUTE AUTO 0.57 K/mm3 (0.16-1.47); MONOCYTES PERCENT AUTO 9 % (4-13); Mean Corpuscular HGB Conc 32.8 g/dL (31.5-36.5); Mean Corpuscular Volume 82 fL (80-100); NEUTROPHILS ABSOLUTE AUTO 3.37 K/mm3 (1.96-9.15); NEUTROPHILS PERCENT AUTO 55 % (41-73); NRBC ABSOLUTE 0.00 K/mm3 (0.00-0.02); NRBC Auto 0.0 /100 WBC (0.0-0.2); Platelet Count 264 K/mm3 (150-400); RDW Coefficient Variation 13.5 % (11.7-14.2); RDW Standard Deviation 40.1 fL (35.1-46.3)
[2025-07-29 11:50] LABS: Alanine Aminotransfer (ALT/SGP 21.0 U/L (12-78); Albumin, Blood 3.0 g/dL (3.4-5.0); Albumin/Globulin Ratio 0.6 (0.8-1.8); Anion Gap 8.0 mmol/L (3-11); Aspartate Aminotrans (AST/SGOT 21.0 U/L (12-37); Bilirubin, Total 0.4 mg/dL (0.1-1.0); Blood Urea Nitrogen 15.0 mg/dL (8-24); C-REACTIVE PROTEIN, EXT RANGE 0.92 mg/dL (0.000-0.300); CO2, Blood 30.0 mmol/L (21-32); Calcium, Blood 9.0 mg/dL (8.5-10.1); Chloride, Blood 102.0 mmol/L (98-108); Creatinine, Blood 0.72 mg/dL (0.60-1.20); Globulin, Blood 5.0 g/dL (2.2-4.0); Glucose, Blood 100.0 mg/dL (70-99); Potassium, Blood 3.9 mmol/L (3.5-5.5); Sodium, Blood 136.0 mmol/L (136-145); Total Protein, Blood 8.0 g/dL (6.4-8.2)
== END 2025-07-29 10:51 | disposition home or self-care (01) ==
LOC: ATC 07:09
PROVIDERS: Internal Medicine Infectious Disease
DX: M46.56 Other infective spondylopathies, lumbar region (principal); M00.062 Staphylococcal arthritis, left knee; B95.61 Methicillin susceptible Staphylococcus aureus infection as the cause of diseases classified elsewhere
CPT/HCPCS: 36591; 80053; 85025; 86140; 96365; J0696

== ENCOUNTER 2025-07-30 03:55 | Day surgery (SDC) | payer BC ==
[~2025-07-30 03:55] MED LIST changes: +CefTRIAXone Sodium 2,000 MG in NS 100 ML IV SCH
[2025-07-30 10:34] VITALS: BP 132/78
== END 2025-07-30 11:02 | disposition home or self-care (01) ==
LOC: ATC 03:55
DX: M46.56 Other infective spondylopathies, lumbar region (principal); M00.062 Staphylococcal arthritis, left knee; B95.61 Methicillin susceptible Staphylococcus aureus infection as the cause of diseases classified elsewhere; E87.1 Hypo-osmolality and hyponatremia; E87.6 Hypokalemia
CPT/HCPCS: 96365; J0696

== ENCOUNTER 2025-08-03 00:37 | Day surgery (SDC) | payer BC ==
[~2025-08-03 00:37] MED LIST changes: -CefTRIAXone Sodium 2,000 MG in NS 100 ML IV SCH
[2025-08-03] MEDS ORDERED: CefTRIAXone Sodium 2,000 MG in NS 100 ML IV SCH (01:00)
[2025-08-03 10:30] VITALS: BP 121/82
== END 2025-08-03 11:00 | disposition home or self-care (01) ==
LOC: ATC 00:37
DX: M46.56 Other infective spondylopathies, lumbar region (principal); B95.61 Methicillin susceptible Staphylococcus aureus infection as the cause of diseases classified elsewhere; M00.062 Staphylococcal arthritis, left knee; Z79.899 Other long term (current) drug therapy
CPT/HCPCS: 96365